=== PATIENT | female | born 1990 | race Hispanic/Latino ===

== ENCOUNTER 2022-09-18 06:16 | Emergency (ER) | payer OTHER ==
[2022-09-18 07:32] LABS: Clarity Slightly Cloudy (Clear); Glucose, Urine (Dipstick) Normal (Negative); Ketone, Urine Negative (Negative); Protein, Urine (Dipstick) Negative (Neg-Trace); Specific Gravity, Urine 1.005 (1.005-1.030)
[2022-09-18 07:44] LABS: Bilirubin Unable to Interpret (Negative); Blood, Urine Unable to Interpret (Negative); Leukocyte Unable to Interpret (Negative); Nitrite Unable to Interpret (Negative); Urobilinogen UNABLE TO INTERPRET mg/dL (Less than 2)
[2022-09-18 07:45] LABS: RBC/HPF 0-3 HPF (0-3); WBC/HPF 21-50 HPF (0-3)
[2022-09-18 07:46] LABS: Bacteria/HPF 1+ HPF (None Seen); Transitional Epithelial 0-3 HPF (None Seen)
[2022-09-18 07:50] LABS: Pregnancy Test - Urine (BHCG) Negative (Negative); Pregu Control Background? CLEAR/WHITE (CLR/WHITE); Pregu Control Bar Appear? YES (CONTROL BAR); Specific Gravity 1.005 (1.002-1.036)
== END 2022-09-18 09:04 | disposition home or self-care (01) ==
LOC: CSHERS 06:16
DX: N39.0 Urinary tract infection, site not specified (principal)
CPT/HCPCS: 81003; 81015; 81025; 99283

== ENCOUNTER 2024-04-30 14:03 | Emergency (ER) | payer OTHER, MEDICAID | END 2024-04-30 16:45 | disposition home or self-care (01) | LOC: CSHERS 14:03 | DX: O99.891 Other specified diseases and conditions complicating pregnancy (principal); R07.89 Other chest pain; R11.0 Nausea; O99.342 Other mental disorders complicating pregnancy, second trimester; F41.9 Anxiety disorder, unspecified; Z3A.21 21 weeks gestation of pregnancy | CPT/HCPCS: 93005 ==

== ENCOUNTER 2024-06-24 20:14 | Day surgery (SDC) | payer OTHER, MEDICAID ==
[2024-06-24] MEDS ORDERED: hydrALAZINE 20 MG/ML VIAL SLOW IVP PRN (20:29)
[2024-06-24 20:33] VITALS: BMI 30.7
[2024-06-24] MEDS ORDERED: Acetaminophen 500 MG TAB PO SCH (21:15)
[2024-06-24 21:31] LABS: Bilirubin Neg (Negative); Blood, Urine Negative (Negative); Clarity Clear (Clear); Glucose, Urine (Dipstick) Normal (Negative); Ketone, Urine Negative (Negative); Leukocyte Negative (Negative); Nitrite Negative (Negative); Protein, Urine (Dipstick) Negative (Neg-Trace); Specific Gravity, Urine 1.005 (1.005-1.030); Urobilinogen Normal mg/dL (Less than 2)
[2024-06-24 21:46] LABS: Bacteria/HPF None Seen HPF (None Seen); CAUTI Indications for Culture Dysuria,urgency,freq; RBC/HPF None Seen HPF (0-3); Squamous Epithelial 0-3 HPF (0-3); WBC/HPF None Seen HPF (0-3)
[2024-06-24 21:47] LABS: Urine Culture Reflex No No
== END 2024-06-24 23:00 | disposition home or self-care (01) ==
LOC: CSHLD/OP 20:14
PROVIDERS: ATTEND Family Medicine
DX: Z04.3 Encounter for examination and observation following other accident (principal); O99.013 Anemia complicating pregnancy, third trimester; W01.0XXA Fall on same level from slipping, tripping and stumbling without subsequent striking against object, initial encounter; Z3A.29 29 weeks gestation of pregnancy; Z90.89 Acquired absence of other organs; Z79.899 Other long term (current) drug therapy
CPT/HCPCS: 36416; 81001; 99283

== ENCOUNTER 2024-08-20 02:26 | Inpatient (IN) | payer OTHER ==
[2024-08-20] MEDS ORDERED: Ibuprofen 800 MG TAB PO PRN (04:00)
[2024-08-20] MEDS ORDERED: Carboprost 250 MCG/ML AMP IM PRN (04:00)
[2024-08-20] MEDS ORDERED: Methylergonovine 0.2 MG/ML VIAL IM PRN ×2 (04:00→21:23)
[2024-08-20] MEDS ORDERED: Acetaminophen 500 MG TAB PO PRN (04:00)
[2024-08-20] MEDS ORDERED: Misoprostol 200 MCG TAB PR PRN (04:00)
[2024-08-20] MEDS ORDERED: Promethazine HCl 25 MG/ML VIAL IM PRN ×3 (04:00→21:23)
[2024-08-20] MEDS ORDERED: Tranexamic Acid 1,000 MG/10 ML VIAL IVP PRN (04:00)
[2024-08-20] MEDS: Lactated Ringer's 1,000 ML IV SCH (04:00)
[2024-08-20] MEDS ORDERED: Lidocaine 1% (PF) 30 ML VIAL SC PRN (04:00)
[2024-08-20] MEDS ORDERED: Oxytocin 30 units/NS 500 ML 500 ML IV SCH ×2 (04:00→21:30)
[2024-08-20] MEDS ORDERED: Docusate 100 MG CAP PO PRN (04:00)
[2024-08-20] MEDS ORDERED: Ondansetron PF 4 MG/2 ML Vial IVP PRN ×3 (04:00→21:23)
[2024-08-20] MEDS ORDERED: hydrALAZINE 20 MG/ML VIAL SLOW IVP PRN ×2 (04:00→21:23)
[2024-08-20 04:04] VITALS: BMI 33.8
[2024-08-20 04:26] LABS: Hematocrit 33.8 % (34.9-44.5); Hemoglobin 11.3 g/dL (12.0-15.5); Mean Corpuscular HGB CONC 33.4 g/dL (32.0-36.0); Mean Corpuscular Hemoglobin 29.5 pg (27.0-33.0); Mean Corpuscular Volume 88.3 fL (81.6-98.3); Mean Platelet Volume 9.5 fL (7.4-10.4); Platelet Count 263 10x3/uL (150-450); RBC Distribution Width 14.5 % (11.5-14.5); Red Blood Cell (RBC) Count 3.83 10x6/uL (3.90-5.03)
[2024-08-20] MEDS: Penicillin G Potassium 5 MILL.UNITS in Sodium Chloride 0.9% 100 ML IVPB SCH (04:37)
[2024-08-20 04:47] LABS: Syphilis Antibody Nonreactive (Nonreactive); Syphilis Antibody Index 0.06 S/CO (<1.00 Non-Reactive)
[2024-08-20 04:49] LABS: HBsAg Index 0.17 S/CO (0-0.99); Hep B Surf Ag - L&D Non-Reactive S/CO (NonReactive)
[2024-08-20] MEDS: fentaNYL 2 mcg/Ropivacaine 0.2% Epidural 100 ML CADD EPIDURAL SCH (05:18)
[2024-08-20] MEDS ORDERED: diphenhydrAMINE 50 MG/ML VIAL IVP PRN (05:23)
[2024-08-20] MEDS ORDERED: ePHEDrine Sulfate 50 MG/10 ML VIAL SLOW IVP PRN (05:23)
[2024-08-20] MEDS ORDERED: Moisturizing Cream (Eucerin) 113 GM JAR TOP PRN (05:23)
[2024-08-20] MEDS ORDERED: Naloxone HCl 0.4 mg/ml Vial IVP PRN ×2 (05:23)
[2024-08-20] MEDS ORDERED: Lactated Ringer's 500 ML IV PRN (05:23)
[2024-08-20] MEDS: Oxytocin 30 units/NS 500 ML 500 ML IV SCH ×2 (05:45→05:50)
[2024-08-20] MEDS: Penicillin G 2.5 MILL.units 2.5 MILL.UNITS in Premix 1 BAG IVPB SCH (08:13)
[2024-08-20] MEDS: Famotidine/PF 20 mg/2ml Vial SLOW IVP SCH (18:08)
[2024-08-20] MEDS ORDERED: Milk Of Magnesia 30 ML UDCUP PO PRN (21:23)
[2024-08-20] MEDS ORDERED: Preparation H Ointment 28 GM TUBE PR PRN (21:23)
[2024-08-20] MEDS ORDERED: Misoprostol 200 MCG TAB VAG PRN (21:23)
[2024-08-20] MEDS ORDERED: Lanolin Ointment 7 GM TUBE TOP PRN (21:23)
[2024-08-20] MEDS ORDERED: Bisacodyl 10 MG SUPP PR PRN (21:23)
[2024-08-20] MEDS ORDERED: diphenhydrAMINE 25 MG CAP PO PRN (21:23)
[2024-08-20] MEDS ORDERED: Benzocaine-Menthol 82.5 ML CAN TOP PRN (21:23)
[2024-08-20] MEDS: fentaNYL/Ropivacaine Epidural 100 ML ONE (21:43)
[2024-08-20] MEDS: Docusate 100 MG CAP PO SCH (22:21)
[2024-08-20] MEDS: Ibuprofen 800 MG TAB PO SCH (22:21)
[2024-08-21] MEDS ORDERED: HYDROcodone/Acetaminophen 5/325 mg Tablet PO PRN (05:45)
[2024-08-21] MEDS: Ferrous Sulfate 325 MG TAB PO SCH (08:06)
[2024-08-21] MEDS: Boostrix 0.5 ML (Tdap) VIAL (>/=7 yrs of age) IM ONE (08:06)
[2024-08-21] MEDS: Famotidine 40 MG (4 mL) VIAL SLOW IVP SCH (08:07)
[2024-08-21] MEDS: Prenatal Vitamin 1 TAB PO SCH (08:44)
[2024-08-21] MEDS: Docusate 100 MG CAP PO SCH (08:44)
[2024-08-21] MEDS: Polyethylene Glycol 3350 17 GM Packet PO SCH (10:05)
[2024-08-21] MEDS: Acetaminophen 325 MG TAB PO PRN (19:47)
[2024-08-22 08:39] VITALS: BP 108/63; TEMP 97.9
== END 2024-08-22 12:15 | disposition home or self-care (01) | DRG 768 ==
LOC: CSHLD 02:26 → CSHPP 21:15
PROVIDERS: ADMIT Family Medicine; ATTEND Family Medicine
PROC: 10D07Z6 Extraction of Products of Conception, Vacuum, Via Natural or Artificial Opening (ICD-10-PCS; principal; 2024-08-20)
PROC: 0UQC7ZZ Repair Cervix, Via Natural or Artificial Opening (ICD-10-PCS; 2024-08-20)
PROC: 10907ZC Drainage of Amniotic Fluid, Therapeutic from Products of Conception, Via Natural or Artificial Opening (ICD-10-PCS; 2024-08-20)
PROC: 10H07YZ Insertion of Other Device into Products of Conception, Via Natural or Artificial Opening (ICD-10-PCS; 2024-08-20)
DX: O24.425 Gestational diabetes mellitus in childbirth, controlled by oral hypoglycemic drugs (principal); Z37.0 Single live birth; O71.3 Obstetric laceration of cervix; O99.824 Streptococcus B carrier state complicating childbirth; O99.02 Anemia complicating childbirth; O36.5930 Maternal care for other known or suspected poor fetal growth, third trimester, not applicable or unspecified; O99.344 Other mental disorders complicating childbirth; F41.1 Generalized anxiety disorder; Z3A.37 37 weeks gestation of pregnancy; O26.893 Other specified pregnancy related conditions, third trimester; Z67.41 Type O blood, Rh negative
CPT/HCPCS: 36415; 36416; 51702; 85027; 85461; 86780; 86850; 86870; 86900; 86901; 86922; 87340; 88305; 88307; 90384; 96372; J2540; J2590; J3490; J7120

== ENCOUNTER 2025-08-24 12:46 | Inpatient (IN) | payer MEDICAID, OTHER ==
[2025-08-24] MEDS ORDERED: Lidocaine 1% (PF) 30 ML VIAL SC PRN (14:25)
[2025-08-24] MEDS ORDERED: Ondansetron PF 4 MG/2 ML Vial IVP PRN (14:25)
[2025-08-24] MEDS ORDERED: Ibuprofen 800 MG TAB PO PRN (14:25)
[2025-08-24] MEDS ORDERED: Acetaminophen 500 MG TAB PO PRN (14:25)
[2025-08-24] MEDS ORDERED: Tranexamic Acid 1,000 MG/10 ML VIAL IVP PRN (14:25)
[2025-08-24] MEDS ORDERED: Diphenoxylate HCl/Atropine Tablet PO PRN ×2 (14:25)
[2025-08-24] MEDS ORDERED: hydrALAZINE 20 MG/ML VIAL SLOW IVP PRN (14:25)
[2025-08-24] MEDS ORDERED: Carboprost 250 MCG/ML AMP IM PRN (14:25)
[2025-08-24] MEDS ORDERED: Methylergonovine 0.2 MG/ML VIAL IM PRN (14:25)
[2025-08-24] MEDS ORDERED: Oxytocin 30 units/NS 500 ML 500 ML IV SCH ×2 (14:30)
[2025-08-24 14:37] LABS: Hematocrit 32.2 % (34.9-44.5); Hemoglobin 10.5 g/dL (12.0-15.5); Mean Corpuscular Hemoglobin 26.9 pg (27.0-33.0); Mean Corpuscular Volume 82.6 fL (81.6-98.3); Platelet Count 264 10x3/uL (150-450); Red Blood Cell (RBC) Count 3.90 10x6/uL (3.90-5.03); White Blood Cell (WBC) Count 12.31 10x3/uL (3.5-10.5)
[2025-08-24 15:17] LABS: Hep B Surf Ag - L&D Non-Reactive S/CO (NonReactive)
[2025-08-24 15:18] LABS: Syphilis Antibody Index 0.06 S/CO (<1.00 Non-Reactive)
[2025-08-24 16:00] VITALS: BMI 33.5
[2025-08-24 16:53] LABS: Glucose, Urine (Dipstick) Normal (Negative); Leukocyte Negative (Negative); Protein, Urine (Dipstick) Negative (Neg-Trace); Specific Gravity, Urine 1.005 (1.005-1.030)
[2025-08-24 17:43] LABS: Bacteria/HPF 2+ HPF (None Seen); CAUTI Indications for Culture Pregnancy; Mucous/LPF 1+ LPF (<2+); RBC/HPF 0-3 HPF (0-3); WBC/HPF 0-3 HPF (0-3)
[2025-08-24 17:45] LABS: Urine Culture Reflex Yes Yes
[2025-08-25] MEDS ORDERED: Bicitra 30 ML UDCUP PO PRN (17:13)
[2025-08-25] MEDS ORDERED: Famotidine/PF 20 mg/2ml Vial SLOW IVP PRN (17:13)
[2025-08-25] MEDS ORDERED: Azithromycin 500 MG in Sodium Chloride 0.9% 250 ML 250 ML IVPB SCH (18:00)
[2025-08-25] MEDS ORDERED: HYDROmorphone 0.5 MG/0.5 ML SYRINGE SLOW IVP PRN (18:05)
[2025-08-25] MEDS ORDERED: Ondansetron PF 4 MG/2 ML Vial IVP PRN ×2 (18:05→19:28)
[2025-08-25] MEDS ORDERED: Communication Order-Pharmacy FS SCH (18:15)
[2025-08-25] MEDS ORDERED: hydrALAZINE 20 MG/ML VIAL SLOW IVP PRN (19:28)
[2025-08-25] MEDS ORDERED: diphenhydrAMINE 25 MG CAP PO PRN (19:28)
[2025-08-25] MEDS ORDERED: Lanolin Ointment 7 GM TUBE TOP PRN (19:28)
[2025-08-25] MEDS ORDERED: Methylergonovine 0.2 MG/ML VIAL IM PRN (19:28)
[2025-08-25] MEDS ORDERED: Oxytocin 30 units/NS 500 ML 500 ML IV SCH (19:28)
[2025-08-25] MEDS: Ketorolac Tromethamine 30 MG (1 mL) VIAL IVP PRN (20:55)
[2025-08-25] MEDS: diphenhydrAMINE 50 MG/ML VIAL IVP PRN (23:06)
[2025-08-26 06:21] LABS: Hematocrit 28.6 % (34.9-44.5); Hemoglobin 9.0 g/dL (12.0-15.5); Mean Corpuscular Hemoglobin 26.6 pg (27.0-33.0); Mean Corpuscular Volume 84.6 fL (81.6-98.3); Platelet Count 193 10x3/uL (150-450); Red Blood Cell (RBC) Count 3.38 10x6/uL (3.90-5.03); White Blood Cell (WBC) Count 12.77 10x3/uL (3.5-10.5)
[2025-08-26] MEDS: PROPOFOL 0 ML ONE (07:30)
[2025-08-26] MEDS: Azithromycin 500 MG VIAL ONE (07:30)
[2025-08-26] MEDS: CEFAZOLIN 2 GM VIAL ONE (07:30)
[2025-08-26] MEDS: Phenylephrine 40 MG/NS 250 ML 250 ML ONE (07:30)
[2025-08-26] MEDS: Erythromycin Base 0.5% Oint 1 GM TUBE ONE (07:31)
[2025-08-26] MEDS: HYDROcodone/Acetaminophen 5/325 mg Tablet PO PRN ×2 (10:51→18:15)
[2025-08-27] MEDS: Ibuprofen 800 MG TAB PO SCH (00:09)
[2025-08-27] MEDS: Simethicone Chewable 80 MG TAB PO PRN (20:38)
[2025-08-28] MEDS: Ibuprofen 800 MG TAB PO SCH (13:58)
[2025-08-29 08:42] VITALS: BP 112/60; TEMP 98
== END 2025-08-29 18:00 | disposition home or self-care (01) | DRG 785 ==
LOC: CSHLD/OP 12:46 → CSHLD 14:55 → CSHPP 08-25 21:47
PROVIDERS: ADMIT Family Medicine; ATTEND Family Medicine
PROC: 4A1HXCZ Monitoring of Products of Conception, Cardiac Rate, External Approach (ICD-10-PCS; 2025-08-24)
PROC: 10D00Z1 Extraction of Products of Conception, Low, Open Approach (ICD-10-PCS; principal; 2025-08-25)
PROC: 0UB60ZZ Excision of Left Fallopian Tube, Open Approach (ICD-10-PCS; 2025-08-25)
DX: O60.14X0 Preterm labor third trimester with preterm delivery third trimester, not applicable or unspecified (principal); O32.8XX0 Maternal care for other malpresentation of fetus, not applicable or unspecified; Z3A.34 34 weeks gestation of pregnancy; Z37.0 Single live birth; O26.893 Other specified pregnancy related conditions, third trimester; O43.123 Velamentous insertion of umbilical cord, third trimester; O99.213 Obesity complicating pregnancy, third trimester; E66.01 Morbid (severe) obesity due to excess calories; Z87.59 Personal history of other complications of pregnancy, childbirth and the puerperium; Z80.9 Family history of malignant neoplasm, unspecified; O34.83 Maternal care for other abnormalities of pelvic organs, third trimester; N83.202 Unspecified ovarian cyst, left side; O76 Abnormality in fetal heart rate and rhythm complicating labor and delivery; Z14.8 Genetic carrier of other disease; Z67.41 Type O blood, Rh negative
CPT/HCPCS: 36415; 51702; 76815; 76819; 81001; 85027; 86780; 86850; 86900; 86901; 87086; 87340; 87480; 87510; 87660; 88305; 99285; J1200; J1885; J2250; J2274; J2704